=== PATIENT | female | born 1995 | race Caucasian/White ===

== ENCOUNTER → 2017-03-22 | Outpatient (CLI) | payer OTHER | END | disposition home or self-care (01) | LOC: LABWHC1 09:50 | PROVIDERS: ATTEND Obstetrics & Gynecology | DX: N91.2 Amenorrhea, unspecified (principal) | CPT/HCPCS: 36415; 84702 ==

== ENCOUNTER 2018-08-09 15:09 | Outpatient (CLI) | payer OTHER ==
[2018-08-09 16:10] VITALS: BP 114/73; PULSE 96; RESP 16; TEMP 97.7
--- NOTE | 2018-08-10 07:14 | P.MSEPDOC ---
Presenting Problems - Arrival Data Date of Arrival on Unit: 08/09/18 Time of Arrival on Unit: 15:09 Mode of Transport: Ambulatory - Complaint OB-Reason for Admission/Chief Complaint: Vaginal Bleeding Comment: pink tinge mucus on tp Medical History - Information : 1 Para: 0 Term: 0 : 0 Abortions: Spontaneous or Elective: 0 Number of Living Children: 0 - Gestational Age Gestational Age by NICOLE (wks/days): 37 Weeks and 6 Days - History Complications: Smoker Review of Systems - Review of Systems Constitutional: No problems Breast: No problems ENT: No problems Cardiovascular: No problems Respiratory: No problems Gastrointestinal: No problems Genitourinary: No problems Musculoskeletal: No problems Neurological: No problems Skin: No problems Vital Signs - Temperature Temperature: 97.7 F Temperature Source: Temporal Artery Scan - Pulse Right Brachial Pulse Rate: 96 Pulse Assessment Method: Automatic Cuff - Respirations Respiratory Rate: 16 Oxygen Delivery Method: Room Air - Blood Pressure Right Arm Blood Pressure: 114/73 Blood Pressure Mean: 86 Blood Pressure Source: Automatic Cuff Medical Screen Scoring (Pre) - Cervical Exam Dilation: 0 cm = 0 - Uterine Contractions Frequency: > 5 minutes apart = 1 - Maternal Vital Signs Maternal Temperature: N/A Signs of Preeclampsia: N/A - Assessment Baseline FHR: 120 Heart Rate - NICHD Category: Category I (Normal) = 0 NST: Reactive Position: N/A Station: N/A - Total Score Total Score (Pre): 1 - Level of Risk Level of Risk: Low (0-5) Physician Notification (Pre) - Physician Notified Physician Notified Date: 08/09/18 Physician Notified Time: 15:48 Spoke With: Elkin Pop Order Received: Yes - Notification Comment Comment: Cervical Exam: Dilatation: Closed (text) /Effacement: 70 % /Station: High (text). Vaginal Discharge: None Noted Disposition - Disposition OB Disposition: Discharge to home, Written follow up instructions reviewed Discharge Date: 08/09/18 Discharge Time: 15:50 I agree with the RN Medical Screening Exam: Yes Risk & Benefit of care provided described in d/c instruction: Yes Diagnosis: FALSE LABOR AT OR AFTER 37 COMPLETED WEEKS OF GESTATION
== END 2018-08-09 15:50 | disposition home or self-care (01) ==
LOC: FBPOP 15:09
PROVIDERS: ATTEND Obstetrics & Gynecology
DX: O47.1 False labor at or after 37 completed weeks of gestation (principal); O99.333 Smoking (tobacco) complicating pregnancy, third trimester; Z3A.37 37 weeks gestation of pregnancy
CPT/HCPCS: 59025; 99213

== ENCOUNTER 2018-08-18 05:43 | Inpatient (IN) | payer OTHER ==
[2018-08-18] MEDS: LACTATED RINGERS 1,000 ML IV SCH ×4 (06:00→23:11)
[2018-08-18] MEDS ORDERED: TERBUTALINE 1 MG/ML VIAL SQ PRN (06:03)
[2018-08-18] MEDS ORDERED: OXYTOCIN 10 UNIT/ML 1 ML VIAL IM PRN (06:03)
[2018-08-18] MEDS ORDERED: CARBOPROST TROMETHAMINE 250 MCG/ML 1 ML AMP IM PRN (06:03)
[2018-08-18] MEDS ORDERED: LIDOCAINE 1% INJ 10MG/ML (20 ML MDV) SQ PRN (06:03)
[2018-08-18] MEDS ORDERED: METHYLERGONOVINE 0.2 MG/ML 1 ML AMP IM PRN (06:03)
[2018-08-18 06:14] VITALS: BMI 46.2
[2018-08-18] MEDS: OXYTOCIN 20 UNITS/1000 ML NS 1,000 ML IV SCH (06:25)
[2018-08-18 07:12] LABS: Basophils # (A) 0.1 k/uL (0-0.2); Basophils % (A) 0 %; Eosinophils # (A) 0.2 k/uL (0-0.7); Eosinophils % (A) 2 %; HCT 37.7 % (34.0-46.0); Lymphocytes # (A) 2.2 k/uL (1.0-4.8); Lymphocytes % (A) 16 %; MCH 29.8 pg (25.0-35.0); MCHC 31.9 g/dL (31.0-37.0); MCV 93.5 fL (80.0-100.0); Mean Platelet Volume 7.8; Monocytes # (A) 0.6 k/uL (0-1.0); Monocytes % (A) 4 %; Neutrophils # (A) 10.9 k/uL (1.3-7.7); Neutrophils % (A) 76 %; Platelet Count 250 k/uL (150-450); RBC 4.04 m/uL (3.80-5.40); RDW 13.7 % (11.5-15.5); WBC 14.3 k/uL (3.8-10.6)
[2018-08-18] MEDS: BUTORPHANOL 1 MG/ML 1 ML VIAL IV PRN ×2 (12:22→14:26)
[2018-08-18] MEDS ORDERED: fentaNYL (PF) 50 MCG/ML 5 ML AMP ONE (16:23)
[2018-08-18] MEDS ORDERED: ROPIVACAINE 5MG/ML 20ML VIAL ONE (16:23)
[2018-08-18] MEDS ORDERED: SODIUM CHLORIDE 0.9% 100 ML BAG ONE (16:23)
[2018-08-19] MEDS ORDERED: AMPICILLIN 2,000 MG in SODIUM CHLORIDE 0.9% 100 ML IVPB STA (00:56)
[2018-08-19] MEDS: BUTORPHANOL 1 MG/ML 1 ML VIAL IV PRN (02:45)
[2018-08-19] MEDS: OXYTOCIN 20 UNITS/1000 ML NS 1,000 ML IV SCH (03:24)
[2018-08-19] MEDS ORDERED: AMPICILLIN 1,000 MG in SODIUM CHLORIDE 0.9% 50 ML IVPB SCH (05:00)
[2018-08-19] MEDS ORDERED: SIMETHICONE 80 MG CHEWABLE PO PRN (05:10)
[2018-08-19] MEDS ORDERED: diphenhydrAMINE 25 MG CAP PO PRN (05:10)
[2018-08-19] MEDS ORDERED: Rhogam IMMUNE GLOBULIN 1,500 UNIT/1 ML IM ONE (05:10)
[2018-08-19] MEDS ORDERED: diphenhydrAMINE 50 MG CAP PO PRN (05:10)
[2018-08-19] MEDS ORDERED: LANOLIN CREAM 5 GM TUBE TOPICAL PRN (05:10)
[2018-08-19] MEDS ORDERED: diphenhydrAMINE 50 MG/ML 1 ML VIAL IVP PRN ×2 (05:10)
[2018-08-19] MEDS ORDERED: HYDROCORTISONE 2.5% RECTAL CREAM 30 GM TUBE RECTAL PRN (05:10)
[2018-08-19] MEDS ORDERED: BENZOCAINE/MENTHOL SPRAY 1 GM/SPRAY AEROSOL TOPICAL PRN (05:10)
[2018-08-19] MEDS ORDERED: ZOLPIDEM 5 MG TAB PO PRN (05:10)
[2018-08-19] MEDS ORDERED: WITCH HAZEL 1 EACH MED..PAD TOPICAL PRN (05:10)
--- NOTE | 2018-08-19 05:14 | P.HPOB ---
History of Present Illness H&P Date: 08/18/18 Chief Complaint: Induction of Labor 22-year-old presents at 39 weeks and 1 day for induction of labor. Her cervix is 1 cm dilated, 70% effaced, and -2 station. She she is kareem irregularly. heart tones are 130-135 with moderate variability and reactive. Review of Systems All systems: negative Constitutional: Denies chills, Denies fever Eyes: denies blurred vision, denies pain Ears, nose, mouth and throat: Denies headache, Denies sore throat Cardiovascular: Denies chest pain, Denies shortness of breath Respiratory: Denies cough Gastrointestinal: Denies abdominal pain, Denies diarrhea, Denies nausea, Denies vomiting Genitourinary: Denies dysuria, Denies hematuria Musculoskeletal: Denies myalgias Integumentary: Denies pruritus, Denies rash Neurological: Denies numbness, Denies weakness Psychiatric: Denies anxiety, Denies depression Endocrine: Denies fatigue, Denies weight change Past Medical History Past Medical History: Thyroid Disorder Additional Past Medical History / Comment(s): Obstetric history: This is her first . She's had care with me since 10 weeks gestation. EDC by 9 week ultrasound. Blood type is A-, antibodies negative, rubella immune , RPR nonreactive, Pap is B-, toxoplasma was negative. Normal 1 hour glucose tolerance test. Program given at 30 weeks on 06/19/2018. Normal anatomy ultrasound. GBS negative. History of Any Multi-Drug Resistant Organisms: None Reported Past Surgical History: No Surgical Hx Reported Past Anesthesia/Blood Transfusion Reactions: No Reported Reaction Past Psychological History: Bipolar, Depression Smoking Status: Current every day smoker Past Alcohol Use History: Rare Past Drug Use History: Marijuana Additional Drug Use History / Comment(s): former use, stopped beginning of - Past Family History Mother Family Medical History: No Reported History Medications and Allergies Home Medications Medication Instructions Recorded Confirmed Type Levothyroxine Sodium [Synthroid] 150 mcg PO DAILY 01/01/16 08/18/18 History Pnv No.95/Ferrous Fum/Folic AC 1 each PO DAILY 08/18/18 08/18/18 History [ Multivitamin Tablet] Allergies Allergy/AdvReac Type Severity Reaction Status Date / Time No Known Allergies Allergy Verified 08/18/18 05:57 Exam Osteopathic Statement: *. No significant issues noted on an osteopathic structural exam other than those noted in the History and Physical/Consult. Vital Signs Temp Pulse Resp BP Pulse Ox 08/18/18 05:56 97.5 F L 99 18 132/92 98 Intake and Output 08/18/18 08/18/18 08/19/18 14:59 22:59 06:59 Intake Total 62.95 Output Total 350 Balance -350 62.95 Intake: Intake, IV Titration 62.95 Amount Oxytocin 20 Units/1000 ml 62.95 Ns 1,000 ml @ 1 MILLIUNIT/MIN 3 mls/hr IV .Q24H [facility] Rx#:[id number] Output: Urine 350 Heart: Regular rate and rhythm Lungs: Clear to auscultation bilaterally Abdomen: Soft, nontender Extremities: Negative Homans sign Results Result Diagrams: 08/18/18 06:00 Abnormal Lab Results - Last 24 Hours (Table) 08/18/18 Range/Units 06:00 WBC 14.3 H (3.8-10.6) k/uL Neutrophils # 10.9 H (1.3-7.7) k/uL Assessment and Plan (1) Normal labor Current Visit: Yes Status: Acute Code(s): O80 - ENCOUNTER FOR FULL-TERM UNCOMPLICATED DELIVERY; Z37.9 - OUTCOME OF DELIVERY, UNSPECIFIED SNOMED Code(s ): 05999072 Plan: 1. Induction of labor with amniotomy and Pitocin 2. Anticipate normal vaginal delivery
[2018-08-19] MEDS ORDERED: OXYTOCIN 20 UNITS/1000 ML NS 1,000 ML IV SCH (05:15)
--- NOTE | 2018-08-19 05:18 | P.PROBDLV ---
Vaginal Delivery Note - . Vaginal Delivery Note: 22-year-old presents at 39 weeks and 1 day for induction of labor. Cervix was 1 cm dilated, 70% effaced, and -2 station. She is kareem irregularly. heart tones 130-135 with moderate variability and reactive. Pitocin was started. Amniotomy was performed at 7:44 AM clear fluid noted. When she was very uncomfortable she did get an epidural for pain management. She made very slow progress through the day and night. At 12 hours of rupture ampicillin was started. Her cervix was completely dilated at 3:59 AM. She pushed until the baby's head was making a large at the perineum, she could not push past this area so a small episiotomy was made. She then pushed and and delivered a viable male over midline episiotomy under epidural anesthesia at 4:46 AM. Head delivered OA, nuchal cord 1 easily reduced, anterior shoulder delivered gentle downward guidance followed by posterior shoulder and rest of body. Nose and mouth bulb suctioned, cord clamped and cut , placed mother's abdomen. Apgars 8, 9, weight 7 lbs. 15 oz. Placenta delivered spontaneous, intact with three-vessel cord at 4:49 AM. Vagina, cervix , perineum inspected. Second-degree midline episiotomy was repaired with 2-0 and 3-0 Vicryl. Estimated blood loss 200 mL. Mother and baby in stable condition.
[2018-08-19] MEDS: IBUPROFEN 600 MG TAB PO PRN ×2 (05:46→16:42)
[2018-08-19] MEDS: SENNOSIDES-DOCUSATE SODIUM 1 EACH TAB PO SCH ×2 (08:05→19:54)
[2018-08-19] MEDS: ACETAMINOPHEN TAB 325 MG TAB PO PRN ×2 (08:05→19:54)
[2018-08-20] MEDS: SENNOSIDES-DOCUSATE SODIUM 1 EACH TAB PO SCH (08:40)
[2018-08-20 09:03] VITALS: RESP 18
--- NOTE | 2018-08-20 09:56 | P.DS ---
Providers Date of admission: 08/18/18 05:43 Expected date of discharge: 08/20/18 Attending physician: Jolynn Granger Primary care physician: Stated None - Discharge Diagnosis(es) (1) Normal labor Current Visit: Yes Status: Resolved (2) Normal vaginal delivery Current Visit: Yes Status: Acute Hospital Course: Pt presented for induction of labor. SHe underwent normal vaginal delivery. HEr pp course was uncomplicated. She will be discharged home PPD #1 in stable condition to follow up with me in 6 weeks. Plan - Discharge Summary New Discharge Prescriptions: New Ibuprofen [Motrin] 600 mg PO Q6HR PRN #30 tab PRN Reason: Mild Pain Or Fever >= 100.5 No Action Levothyroxine Sodium [Synthroid] 150 mcg PO DAILY Pnv No.95/Ferrous Fum/Folic AC [ Multivitamin Tablet] 1 each PO DAILY Discharge Medication List Levothyroxine Sodium [Synthroid] 150 mcg PO DAILY 01/01/16 [History] Pnv No.95/Ferrous Fum/Folic AC [ Multivitamin Tablet] 1 each PO DAILY [History] Ibuprofen [Motrin] 600 mg PO Q6HR PRN #30 tab 08/20/18 [Rx] Follow up Appointment(s)/Referral(s): Jolynn Granger DO [Doctor of Osteopathic Medicine] - 6 Weeks Discharge Disposition: HOME SELF-CARE
[2018-08-20 17:45] VITALS: BP 115/60; PULSE 80; TEMP 98.3
== END 2018-08-20 19:30 | disposition home or self-care (01) | DRG 807 ==
LOC: 4FBP 05:43
PROVIDERS: ADMIT Obstetrics & Gynecology; ATTEND Obstetrics & Gynecology
PROC: 10E0XZZ Delivery of Products of Conception, External Approach (ICD-10-PCS; principal; 2018-08-19)
PROC: 3E033VJ Introduction of Other Hormone into Peripheral Vein, Percutaneous Approach (ICD-10-PCS; 2018-08-19)
PROC: 10907ZC Drainage of Amniotic Fluid, Therapeutic from Products of Conception, Via Natural or Artificial Opening (ICD-10-PCS; 2018-08-19)
PROC: 00HU33Z Insertion of Infusion Device into Spinal Canal, Percutaneous Approach (ICD-10-PCS; 2018-08-19)
PROC: 3E0R3BZ Introduction of Anesthetic Agent into Spinal Canal, Percutaneous Approach (ICD-10-PCS; 2018-08-19)
PROC: 0W8NXZZ Division of Female Perineum, External Approach (ICD-10-PCS; 2018-08-19)
DX: O69.81X0 Labor and delivery complicated by cord around neck, without compression, not applicable or unspecified (principal); Z37.0 Single live birth; O99.344 Other mental disorders complicating childbirth; F32.9 Major depressive disorder, single episode, unspecified; O99.334 Smoking (tobacco) complicating childbirth; F17.210 Nicotine dependence, cigarettes, uncomplicated; M51.26 Other intervertebral disc displacement, lumbar region; O99.89 Other specified diseases and conditions complicating pregnancy, childbirth and the puerperium; O99.284 Endocrine, nutritional and metabolic diseases complicating childbirth; E03.9 Hypothyroidism, unspecified; O99.214 Obesity complicating childbirth; E66.9 Obesity, unspecified; O26.893 Other specified pregnancy related conditions, third trimester; Z3A.39 39 weeks gestation of pregnancy; Z67.91 Unspecified blood type, Rh negative; Z79.899 Other long term (current) drug therapy
CPT/HCPCS: 85025; 86850; 86900; 86901

== ENCOUNTER 2020-09-29 15:21 | Outpatient (CLI) | payer OTHER ==
[2020-09-29 16:45] VITALS: BP 128/70; PULSE 85; RESP 16; TEMP 97.4
--- NOTE | 2020-10-02 07:38 | P.MSEPDOC ---
Presenting Problems - Arrival Data Date of Arrival on Unit: 09/29/20 Time of Arrival on Unit: 15:21 Mode of Transport: Ambulatory - Complaint OB-Reason for Admission/Chief Complaint: Vaginal Bleeding Medical History - Information : 2 Para: 1 Term: 1 : 0 Abortions: Spontaneous or Elective: 0 Number of Living Children: 1 - Gestational Age Gestational Age by INCOLE (wks/days): 36 Weeks and 2 Days - History Complications: Other Comment: Baby has a dilated L kidney, pt is being seen by MFM Review of Systems - Review of Systems Constitutional: No problems Breast: No problems ENT: No problems Cardiovascular: No problems Respiratory: No problems Gastrointestinal: No problems Genitourinary: No problems Musculoskeletal: No problems Neurological: No problems Skin: No problems Vital Signs - Temperature Temperature: 97.4 F Temperature Source: Temporal Artery Scan - Pulse Right Pulse Rate: 85 Pulse Assessment Method: Automatic Cuff - Respirations Respiratory Rate: 16 Oxygen Delivery Method: Room Air O2 Sat by Pulse Oximetry: 96 - Blood Pressure Right Arm Blood Pressure: 128/70 Blood Pressure Mean: 89 Blood Pressure Source: Automatic Cuff Medical Screen Scoring (Pre) - Cervical Exam Dilation: 0 cm = 0 Membranes: Intact - Uterine Contractions Frequency: > 5 minutes apart = 1 Duration: > 40 seconds = 2 Intensity: Contraction palpated strong = 1 - Maternal Vital Signs Maternal Temperature: N/A Maternal Blood Pressure: N/A Signs of Preeclampsia: N/A Maternal Respirations: N/A - Maternal Trauma Maternal Trauma: N/A - Assessment - Baby A Baseline FHR: 125 Heart Rate - NICHD Category: Category I (Normal) = 0 NST: Reactive Position: N/A Station: N/A - Total Score - Baby A Total Score - Baby A: 4 - Total Score - Baby B Total Score - Baby B: 4 - Total Score - Baby C Total Score - Baby C: 4 - Level of Risk - Baby A Level of Risk - Baby A: Low (0-5) - Level of Risk - Baby B Level of Risk - Baby B: Low (0-5) - Level of Risk - Baby C Level of Risk - Baby C: Low (0-5) Physician Notification (Pre) - Physician Notified Physician Notified Date: 09/29/20 Physician Notified Time: 15:59 New Order Received: Yes - Notification Comment Comment: Check patient's cervix, if no/minimal bleeding noted on glove and patient is not dilated, she may DC home. Disposition - Disposition OB Disposition: Triage Discharge Date: 09/29/20 Discharge Time: 16:40 I agree with the RN Medical Screening Exam: Yes Risk & Benefit of care provided described in d/c instruction: Yes Diagnosis: SPOTTING COMPLICATING , THIRD TRIMESTER
== END 2020-09-29 16:40 | disposition home or self-care (01) ==
LOC: FBPOP 15:21
PROVIDERS: ATTEND Obstetrics & Gynecology
DX: O26.853 Spotting complicating pregnancy, third trimester (principal); Z3A.36 36 weeks gestation of pregnancy
CPT/HCPCS: 59025; 99213

== ENCOUNTER 2020-10-21 06:00 | Inpatient (IN) | payer OTHER ==
[2020-10-21] MEDS ORDERED: CITRIC ACID-SODIUM CITRATE 15 ML CUP PO ONE (06:13)
[2020-10-21 06:53] LABS: Basophils # (A) 0.2 k/uL (0-0.2); Basophils % (A) 1 %; Eosinophils # (A) 0.3 k/uL (0-0.7); Eosinophils % (A) 2 %; HGB 11.5 gm/dL (11.4-16.0); Lymphocytes # (A) 2.1 k/uL (1.0-4.8); Lymphocytes % (A) 14 %; MCH 29.1 pg (25.0-35.0); MCHC 32.9 g/dL (31.0-37.0); MCV 88.5 fL (80.0-100.0); Mean Platelet Volume 8.3; Monocytes # (A) 0.7 k/uL (0-1.0); Monocytes % (A) 4 %; Neutrophils # (A) 11.3 k/uL (1.3-7.7); Neutrophils % (A) 76 %; Platelet Count 305 k/uL (150-450); RBC 3.95 m/uL (3.80-5.40); RDW 13.1 % (11.5-15.5); WBC 14.9 k/uL (3.8-10.6)
[2020-10-21] MEDS ORDERED: LACTATED RINGERS 1,000 ML IV ONE (06:59)
[2020-10-21] MEDS ORDERED: ceFAZolin 3 GM in SODIUM CHLORIDE 0.9% 100 ML IVPB ONE (07:00)
[2020-10-21] MEDS ORDERED: LACTATED RINGERS 1,000 ML IV SCH (07:00)
[2020-10-21] MEDS ORDERED: NALBUPHINE 10 MG/ML (1 ML AMP) ONE (07:54)
[2020-10-21] MEDS ORDERED: PHENYLEPHRINE 10 MG/ML VIAL ONE (07:54)
[2020-10-21] MEDS ORDERED: OXYTOCIN 10 UNIT/ML 1 ML VIAL ONE (07:54)
[2020-10-21] MEDS ORDERED: MORPHINE SULFATE (PF) 0.3 MG/0.3 ML SYR ONE (07:54)
[2020-10-21] MEDS ORDERED: diphenhydrAMINE 25 MG CAP PO PRN (08:49)
[2020-10-21] MEDS ORDERED: ACETAMINOPHEN TAB 325 MG TAB PO PRN (08:49)
[2020-10-21] MEDS ORDERED: LANOLIN CREAM 5 GM TUBE TOPICAL PRN (08:49)
[2020-10-21] MEDS ORDERED: NALOXONE 0.4 MG/ML 1 ML VIAL IV PRN ×2 (08:49→08:57)
[2020-10-21] MEDS ORDERED: ZOLPIDEM 5 MG TAB PO PRN (08:49)
[2020-10-21] MEDS ORDERED: ONDANSETRON 4 MG/2 ML VIAL IVP PRN (08:49)
[2020-10-21] MEDS ORDERED: METOCLOPRAMIDE 5 MG/ML 2 ML VIAL IVP PRN (08:49)
[2020-10-21] MEDS ORDERED: diphenhydrAMINE 50 MG/ML 1 ML VIAL IVP PRN ×2 (08:49)
[2020-10-21] MEDS ORDERED: SIMETHICONE 80 MG CHEWABLE PO PRN (08:49)
[2020-10-21] MEDS ORDERED: HYDROmorphone 0.5 MG/0.5 ML SYRINGE IVP PRN (08:57)
[2020-10-21] MEDS ORDERED: OXYTOCIN 20 UNITS/1000 ML NS 1,000 ML IV SCH (09:00)
[2020-10-21] MEDS: KETOROLAC 15 MG/ML 1 ML VIAL IVP SCH ×2 (12:32→21:29)
--- NOTE | 2020-10-21 12:46 | P.HPOB ---
History of Present Illness H&P Date: 10/21/20 Chief Complaint: macrosomia, with dilated left renal kidney 24-year-old presents at 39 weeks and 3 days for a primary low transverse . She had an ultrasound the other day for the baby was measuring greater than 90th percentile about 9-1/2 pounds. Is advised with [facility] that we should offer her a section which she agreed to along with a tubal l igation. Review of Systems All systems: negative Constitutional: Denies chills, Denies fever Eyes: denies blurred vision, denies pain Ears, nose, mouth and throat: Denies headache, Denies sore throat Cardiovascular: Denies chest pain, Denies shortness of breath Respiratory: Denies cough Gastrointestinal: Denies abdominal pain, Denies diarrhea, Denies nausea, Denies vomiting Genitourinary: Denies dysuria, Denies hematuria Musculoskeletal: Denies myalgias Integumentary: Denies pruritus, Denies rash Neurological: Denies numbness, Denies weakness Psychiatric: Denies anxiety, Denies depression Endocrine: Denies fatigue, Denies weight change Past Medical History Past Medical History: Thyroid Disorder Additional Past Medical History / Comment(s): Obstetric history: This is her second . She's had care with me in follow-up with [facility] for a dilated left renal pelvis. Blood type is A-, antibodies negative, rubella immune, RPR nonreactive, Pap is B-, toxoplasma was negative. Normal 1 hour glucose tolerance test. History of Any Multi-Drug Resistant Organisms: None Reported Past Surgical History: No Surgical Hx Reported Past Anesthesia/Blood Transfusion Reactions: No Reported Reaction Past Psychological History: Bipolar, Depression Smoking Status: Former smoker Past Alcohol Use History: None Reported, Rare Past Drug Use History: None Reported, Marijuana Additional Drug Use History / Comment(s): former use, stopped beginning of - Past Family History Mother Family Medical History: No Reported History Medications and Allergies Home Medications Medication Instructions Recorded Confirmed Type Pnv No.95/Ferrous Fum/Folic AC 1 each PO DAILY 08/18/18 10/21/20 History [ Multivitamin Tablet] Escitalopram [Lexapro] 20 mg PO DAILY 09/29/20 10/21/20 History Levothyroxine Sodium [Levoxyl] 225 mcg PO DAILY 09/29/20 10/21/20 History Omeprazole Magnesium [PriLOSEC OTC] 1 tab PO DAILY 09/29/20 10/21/20 History Allergies Allergy/AdvReac Type Severity Reaction Status Date / Time No Known Allergies Allergy Verified 09/29/20 15:50 Exam Osteopathic Statement: *. No significant issues noted on an osteopathic structural exam other than those noted in the History and Physical/Consult. Vital Signs Temp Pulse Resp BP Pulse Ox 10/21/20 12:00 97.9 F 84 16 116/72 97 10/21/20 10:45 97.2 F L 73 16 100/58 96 10/21/20 10:15 77 17 106/56 96 10/21/20 09:43 96.7 F L 73 17 118/68 97 10/21/20 09:24 96.9 F L 72 17 116/82 96 10/21/20 09:09 96.9 F L 71 17 104/58 97 10/21/20 08:54 71 16 110/56 96 10/21/20 08:46 96.9 F L 79 16 110/56 96 10/21/20 06:10 96.7 F L 87 16 132/73 98 Intake and Output 10/20/20 10/21/20 10/21/20 22:59 06:59 14:59 Other: Weight 138.346 kg Heart: Regular rate and rhythm Lungs: Clear to auscultation bilaterally Abdomen: Soft, nontender Extremities: Negative Homans sign Results Result Diagrams: 10/21/20 06:10 Abnormal Lab Results - Last 24 Hours (Table) 10/21/20 Range/Units 06:10 WBC 14.9 H (3.8-10.6) k/uL Neutrophils # 11.3 H (1.3-7.7) k/uL Assessment and Plan (1) Macrosomia Current Visit: Yes Status: Acute Code(s): P08.0 - EXCEPTIONALLY LARGE BABY SNOMED Code(s): 70980855 (2) Dilation of renal pelvis of fetus Current Visit: Yes Status: Acute Code(s): RDX5934 - SNOMED Code(s): 640664968 (3) Family planning Current Visit: Yes Status: Acute Code(s): Z30.09 - ENCOUNTER FOR OTH GENERAL CNSL AND ADVICE ON CONTRACEPTION SNOMED Code(s): 699552582 Plan: 1. primary low transverse with tubal ligation
--- NOTE | 2020-10-21 12:51 | P.OP ---
Date of Procedure: 10/21/20 Preoperative Diagnosis: 1. at 39 weeks 3 days 2. macrosomia 3. dilated left renal pelvis 4. family planning Postoperative Diagnosis: 1. at 39 weeks 3 days 2. macrosomia 3. dilated left renal pelvis 4. family planning Procedure(s) Performed: Primary low transverse with tubal ligation Anesthesia: spinal Surgeon: Jolynn Granger Cost Reduction Engineer #1: Evelyn Grullon Estimated Blood Loss (ml): 500 IV fluids (ml): 500 Urine output (ml): 200 Pathology: other (Bilateral fallopian tube segments) Condition: stable Disposition: floor Operative Findings: Viable male, Apgars ending, weight 9 lbs. 1 oz. Description of Procedure: Patient was taken to the operating room where spinal anesthesia was found be adequate. She was prepped and draped in normal sterile fashion in dorsal supine position with a leftward tilt. Pfannenstiel skin incision was made the scalpel and carried through to the underlying layer of fascia with the scalpel. Fascia was incised in midline and carried bilaterally with the Jaimes scissors. The superior aspect of the fascial incision was grasped with [place] clamps elevated and the underlying rectus muscles dissected off with the Jaimes's. Attention was then turned to inferior aspect of same incision which in a similar fashion was grasped tented up and the underlying rectus muscles dissected off with the Jaimes's. The rectus muscles were the midline and the peritoneum was identified tented up and entered sharply with the scalpel. The incision was extended superiorly and inferiorly with good visualization of the bladder. The bladder blade was inserted and the vesicouterine peritoneum was incised the [place]zen[place]ums then carried bilaterally and bladder flap created digitally. A low transverse incision was then made on the uterus with the scalpel. This was carried bilaterally and digital manner. Infant's head delivered atraumatically, nose and mouth bulb suctioned, cord clamped and cut, handed off to waiting nurses. Apgars 8,8, weight 9 lbs. 1 oz. Placenta delivered manually, intact with three-vessel cord. The uterus is exteriorized and cleared of all clots and debris. The uterine incision was closed with 0 Vicryl in a running locked fashion. Second layer of the same sutures used in imbricating fashion to obtain excellent hemostasis. Both ovaries and tubes appeared normal. The uterus was placed back into the abdomen. The peritoneum was reapproximated using 2-0 Vicryl in a running fashion. The muscles were reapproximated using 2- 0 Vicryl in interrupted fashion. The fascia was reapproximated using 0 Vicryl in a running fashion. The subcutaneous tissues closed with 3-0 Vicryl running fashion. The skin was closed kaylah. Patient tolerated the procedure well, sponge and instrument counts were correct times 2 and she was taken to the recovery room in stable condition.
[2020-10-21] MEDS: LACTATED RINGERS 1,000 ML IV SCH ×2 (16:02→18:02)
[2020-10-21] MEDS: SENNOSIDES-DOCUSATE SODIUM 1 EACH TAB PO SCH (21:36)
[2020-10-21] MEDS: diphenhydrAMINE 50 MG/ML 1 ML VIAL IVP PRN (23:00)
[2020-10-22] MEDS: LACTATED RINGERS 1,000 ML IV SCH ×2 (01:45→11:59)
[2020-10-22] MEDS: KETOROLAC 15 MG/ML 1 ML VIAL IVP SCH ×3 (01:46→15:58)
[2020-10-22] MEDS: diphenhydrAMINE 50 MG/ML 1 ML VIAL IVP PRN (05:04)
[2020-10-22 06:55] LABS: Basophils % (A) 0 %; Eosinophils # (A) 0.2 k/uL (0-0.7); Eosinophils % (A) 2 %; HCT 29.5 % (34.0-46.0); Lymphocytes # (A) 1.4 k/uL (1.0-4.8); Lymphocytes % (A) 12 %; MCH 30.3 pg (25.0-35.0); MCHC 33.7 g/dL (31.0-37.0); MCV 89.9 fL (80.0-100.0); Monocytes # (A) 0.5 k/uL (0-1.0); Monocytes % (A) 4 %; Neutrophils # (A) 9.4 k/uL (1.3-7.7); Neutrophils % (A) 79 %; Platelet Count 257 k/uL (150-450); RBC 3.28 m/uL (3.80-5.40); RDW 13.3 % (11.5-15.5); WBC 11.8 k/uL (3.8-10.6)
[2020-10-22 07:17] LABS: HGB 9.9 gm/dL (11.4-16.0)
--- NOTE | 2020-10-22 07:31 | P.PN ---
Progress Note - Text Date: 10/22/2020 Time: 06:49 The patient is status post section Vital signs stable VAS: 0-10 Patient has no complaints of pain. The patient incurred some minimal itching yesterday, this itching is now subsiding. Pain meds to be managed by service.
[2020-10-22] MEDS: SENNOSIDES-DOCUSATE SODIUM 1 EACH TAB PO SCH ×2 (07:35→21:13)
--- NOTE | 2020-10-22 08:11 | P.PNOBGPC ---
Subjective - Subjective Principal diagnosis: Status post primary low transverse with tubal ligation. POD #1 Interval history: Recent seen and examined. Denies nausea, vomiting, chest pain, shortness of breath or any calf pain. Her pain is controlled with Toradol and [place]. Patient reports: Reports appetite normal, Reports voiding normally, Reports pain well controlled, Reports ambulating normally Objective - Vital Signs Latest vital signs: Vital Signs Temp Pulse Resp BP Pulse Ox 10/22/20 04:47 98 10/22/20 04:00 98.3 F 86 16 105/65 97 10/22/20 01:48 16 10/22/20 01:00 98 10/21/20 23:53 77 16 10/21/20 23:52 98.8 F 77 16 95/46 96 10/21/20 22:00 16 10/21/20 21:00 99 10/21/20 20:00 98.2 F 75 16 121/78 99 10/21/20 16:00 98.0 F 69 17 116/73 98 10/21/20 15:00 17 10/21/20 12:30 16 10/21/20 12:00 97.9 F 84 16 116/72 97 10/21/20 10:45 97.2 F L 73 16 100/58 96 10/21/20 10:15 77 17 106/56 96 10/21/20 09:43 96.7 F L 73 17 118/68 97 10/21/20 09:24 96.9 F L 72 17 116/82 96 10/21/20 09:09 96.9 F L 71 17 104/58 97 10/21/20 08:54 71 16 110/56 96 10/21/20 08:46 96.9 F L 79 16 110/56 96 Intake and Output 10/21/20 10/22/20 10/22/20 22:59 06:59 14:59 Output Total 325 600 Balance -325 -600 Output: Urine 325 600 Uretheral ([place]) 200 Other: # Voids 1 1 - Exam Lungs: bilateral: normal Chest: Normal S1, Normal S2 Extremities: Present: normal Abdomen: Present: normal appearance, soft. Absent: distention, tenderness Incision: Present: normal, dry, intact Uterus: Present: normal, firm - Labs Labs: Abnormal Lab Results - Last 24 Hours (Table) 10/22/20 Range/Units 06:39 WBC 11.8 H (3.8-10.6) k/uL RBC 3.28 L (3.80-5.40) m/uL Hgb 9.9 L D (11.4-16.0) gm/dL Hct 29.5 L (34.0-46.0) % Neutrophils # 9.4 H (1.3-7.7) k/uL Assessment and Plan (1) Macrosomia Current Visit: Yes Status: Resolved Code(s): P08.0 - EXCEPTIONALLY LARGE BABY SNOMED Code(s): 03878605 (2) Dilation of renal pelvis of fetus Current Visit: Yes Status: Resolved Code(s): ZAB3816 - SNOMED Code(s): 457442837 (3) Family planning Current Visit: Yes Status: Resolved Code(s): Z30.09 - ENCOUNTER FOR OTH GENERAL CNSL AND ADVICE ON CONTRACEPTION SNOMED Code(s): 216362280 (4) Status post primary low transverse section Current Visit: Yes Status: Acute Code(s): Z98.891 - HISTORY OF UTERINE SCAR FROM PREVIOUS SURGERY SNOMED Code(s): 509407080 (5) Status post tubal ligation at time of delivery, current hosp Current Visit: Yes Status: Acute Code(s): O80 - ENCOUNTER FOR FULL-TERM UNCOMPLICATED DELIVERY; Z30.2 - ENCOUNTER FOR STERILIZATION SNOMED Code(s): 694485074 Plan: 1. Increase ambulation 2. Continue pain control 3. Regular diet
[2020-10-22] MEDS: HYDROcodone/APAP 7.5-325MG 1 EACH TAB PO PRN ×2 (11:57→18:10)
[2020-10-22] MEDS: IBUPROFEN 600 MG TAB PO PRN ×2 (14:54→21:13)
[2020-10-22] MEDS: diphenhydrAMINE 50 MG CAP PO PRN (18:16)
[2020-10-23] MEDS: HYDROcodone/APAP 7.5-325MG 1 EACH TAB PO PRN ×3 (00:04→12:43)
[2020-10-23] MEDS: diphenhydrAMINE 50 MG CAP PO PRN (00:07)
[2020-10-23 00:09] VITALS: PULSE 89
[2020-10-23] MEDS: IBUPROFEN 600 MG TAB PO PRN ×2 (03:03→09:33)
--- NOTE | 2020-10-23 07:45 | P.PNOBGPC ---
Subjective - Subjective Principal diagnosis: S/P 1*LTCS with TL POD #2 Interval history: Patient seen and examined. feeling well. Denies N/V, F/C, CP, SOB, calf pain. Jax reg diet and passing flatus. pain well controlled. Patient reports: Reports appetite normal, Reports voiding normally, Reports pain well controlled, Reports ambulating normally Objective - Vital Signs Latest vital signs: Vital Signs Temp Pulse Resp BP Pulse Ox 10/23/20 00:00 98.5 F 89 16 113/72 10/22/20 15:02 97.6 F 97 17 138/77 10/22/20 08:00 97.7 F 83 16 128/76 99 Intake and Output 10/22/20 10/23/20 10/23/20 22:59 06:59 14:59 Other: # Voids 2 1 - Exam Lungs: bilateral: normal Chest: Normal S1, Normal S2 Extremities: Present: normal Abdomen: Present: normal appearance, soft. Absent: distention, tenderness Incision: Present: normal, dry, intact Uterus: Present: normal, firm Assessment and Plan (1) Macrosomia Current Visit: Yes Status: Resolved Code(s): P08.0 - EXCEPTIONALLY LARGE BABY SNOMED Code(s): 71225507 (2) Dilation of renal pelvis of fetus Current Visit: Yes Status: Resolved Code(s): ZRL7706 - SNOMED Code(s): 277204607 (3) Family planning Current Visit: Yes Status: Resolved Code(s): Z30.09 - ENCOUNTER FOR OT GENERAL CNSL AND ADVICE ON CONTRACEPTION SNOMED Code(s): 904719261 (4) Status post primary low transverse section Current Visit: Yes Status: Acute Code(s): Z98.891 - HISTORY OF UTERINE SCAR FROM PREVIOUS SURGERY SNOMED Code(s): 473470309 (5) Status post tubal ligation at time of delivery, current hosp Current Visit: Yes Status: Acute Code(s): O80 - ENCOUNTER FOR FULL-TERM UNCOMPLICATED DELIVERY; Z30.2 - ENCOUNTER FOR STERILIZATION SNOMED Code(s): 743836694 Plan: 1. cont po care 2. possible discharge home later today
[2020-10-23 08:05] VITALS: BP 125/85; RESP 18; TEMP 97.8
[2020-10-23] MEDS: SENNOSIDES-DOCUSATE SODIUM 1 EACH TAB PO SCH (09:33)
--- NOTE | 2020-10-23 12:26 | P.DS ---
Providers Date of admission: 10/21/20 06:00 Expected date of discharge: 10/23/20 Attending physician: Jolynn Granger Primary care physician: Stated None - Discharge Diagnosis(es) (1) Macrosomia Current Visit: Yes Status: Resolved (2) Dilation of renal pelvis of fetus Current Visit: Yes Status: Resolved (3) Family planning Current Visit: Yes Status: Resolved (4) Status post primary low transverse section Current Visit: Yes Status: Acute (5) Status post tubal ligation at time of delivery, current hosp Current Visit: Yes Status: Acute Hospital Course: Patient presented for 1*LTCS with TL. She underwent this procedure without complication. The baby did have some oxygenation issues and is still in the nursery with supplemental oxygen. Pt is ambulating and voiding, abdiel reg diet and having normal bowel movements. She will be discharged home POD #2 in stable condition to follow up with me in one week. Plan - Discharge Summary New Discharge Prescriptions: New Ibuprofen [Motrin] 600 mg PO Q6HR PRN #30 tab PRN Reason: Mild Pain Or Fever >= 100.5 HYDROcodone/APAP 7.5-325MG [[place] 7.5-325] 1 each PO Q6H PRN #12 tab PRN Reason: Severe Pain No Action Pnv No.95/Ferrous Fum/Folic AC [ Multivitamin Tablet] 1 each PO DAILY Escitalopram [Lexapro] 20 mg PO DAILY Levothyroxine Sodium [Levoxyl] 225 mcg PO DAILY Omeprazole Magnesium [PriLOSEC OTC] 1 tab PO DAILY Discharge Medication List Pnv No.95/Ferrous Fum/Folic AC [ Multivitamin Tablet] 1 each PO DAILY 08/18/18 [History] Escitalopram [Lexapro] 20 mg PO DAILY 09/29/20 [History] Levothyroxine Sodium [Levoxyl] 225 mcg PO DAILY 09/29/20 [History] Omeprazole Magnesium [PriLOSEC OTC] 1 tab PO DAILY 09/29/20 [History] HYDROcodone/APAP 7.5-325MG [[place] 7.5-325] 1 each PO Q6H PRN #12 tab 10/23/20 [Rx] Ibuprofen [Motrin] 600 mg PO Q6HR PRN #30 tab 10/23/20 [Rx] Follow up Appointment(s)/Referral(s): Jolynn Granger DO [Doctor of Osteopathic Medicine] - 1 Week Discharge Disposition: HOME SELF-CARE
== END 2020-10-23 13:32 | disposition home or self-care (01) | DRG 785 ==
LOC: 4FBP 06:00
PROVIDERS: ADMIT Obstetrics & Gynecology; ATTEND Obstetrics & Gynecology
PROC: 10D00Z1 Extraction of Products of Conception, Low, Open Approach (ICD-10-PCS; principal; 2020-10-21 08:14)
PROC: 0UB70ZZ Excision of Bilateral Fallopian Tubes, Open Approach (ICD-10-PCS; principal; 2020-10-21 08:14)
DX: O36.63X0 Maternal care for excessive fetal growth, third trimester, not applicable or unspecified (principal); O99.344 Other mental disorders complicating childbirth; F32.9 Major depressive disorder, single episode, unspecified; Z30.2 Encounter for sterilization; Z37.0 Single live birth; Z3A.39 39 weeks gestation of pregnancy; Z79.890 Hormone replacement therapy; Z79.899 Other long term (current) drug therapy; Z87.891 Personal history of nicotine dependence; O36.8930 Maternal care for other specified fetal problems, third trimester, not applicable or unspecified
CPT/HCPCS: 85025; 86850; 86900; 86901; 88302

== ENCOUNTER → 2021-06-10 | Outpatient (CLI) | payer BC | END | disposition home or self-care (01) | LOC: LABWHC1 15:00 | PROVIDERS: ATTEND Internal Medicine | DX: Z20.822 Contact with and (suspected) exposure to COVID-19 (principal) | CPT/HCPCS: U0003; C9803; U0005 ==

== ENCOUNTER → 2023-03-08 | Outpatient (CLI) | payer OTHER ==
[2023-03-09 01:07] LABS: HIV 2 AB Non-Reactive (Non-Reactive); HIV AB P24 Non-Reactive (Non-Reactive); HIV P24 AG Non-Reactive (Non-Reactive)
[2023-03-09 05:43] LABS: Herpes simplex I and/or II IgM 0.29 INDEX (<=0.90); Herpes simplex IgG I Ab 2.4 (< or = 0.90); Herpes simplex IgG II Ab 0.42 (< or = 0.90)
[2023-03-10 07:29] LABS: C. trachomatis,PCR Negative (Neg,Equiv); Chlamydia trachomatis Source Urine
[2023-03-10 09:03] LABS: N. gonorrhoeae,PCR Negative (Neg,Equiv); Neisseria Source Urine
== END | disposition home or self-care (01) ==
LOC: LABWHC1 11:21
PROVIDERS: ATTEND Nurse Practitioner Family
DX: Z11.3 Encounter for screening for infections with a predominantly sexual mode of transmission (principal); Z20.2 Contact with and (suspected) exposure to infections with a predominantly sexual mode of transmission
CPT/HCPCS: 36415; 86694; 86695; 86696; 87390; 87491; 87591

== ENCOUNTER 2023-12-15 22:30 | Emergency (ER) | payer OTHER ==
[2023-12-15] MEDS: LIDOCAINE 4% PATCH TOPICAL ONE (23:19)
[2023-12-15] MEDS: ORPHENADRINE 30 MG/ML 2 ML VIAL IM STA (23:19)
[2023-12-15] MEDS: KETOROLAC 15 MG/ML 1 ML VIAL IM STA (23:20)
--- NOTE | 2023-12-16 00:26 | XR ---
EXAMINATION TYPE: XR lumbar spine 2 or 3V DATE OF EXAM: 12/16/2023 CLINICAL HISTORY: Strain injury with pain TECHNIQUE: Frontal and lateral images of the lumbar spine are obtained. COMPARISON: None FINDINGS: There are 5 lumbar type vertebral bodies identified. The lumbar spine shows dextroconvex scoliotic curvature centered at L2 level without evidence of acute fracture or dislocation. Vertebral body heights and disk space heights are within normal limits. The overlying soft tissue appears un remarkable. IMPRESSION: No acute fracture or dislocation is seen in the lumbar spine.
[2023-12-16] MEDS: HYDROmorphone 1 MG/ML 1 ML SYRINGE IM STA (00:47)
--- NOTE | 2023-12-16 00:53 | ED ---
Back Pain HPI - General Source: patient Limitations: no limitations <Madiha Leyva - Last Filed: 12/16/23 04:24> <Ewa Mata - Last Filed: 12/16/23 07:07> - General Chief Complaint: Back Pain/Injury Stated Complaint: Lower Back Pain Time Seen by Provider: 12/15/23 22:47 - History of Present Illness Initial Comments: 28-year-old female presenting with chief complaint of lower back pain. 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 No radiation of pain down the legs. No loss of bowel or bladder control or saddle paresthesia. Pain remains centralized. (Madiha Leyva) - Related Data Home Medications Medication Instructions Recorded Confirmed Pnv No.95/Ferrous Fum/Folic AC 1 each PO DAILY 08/18/18 10/21/20 [ Multivitamin Tablet] Escitalopram [Lexapro] 20 mg PO DAILY 09/29/20 10/21/20 Levothyroxine Sodium [Levoxyl] 225 mcg PO DAILY 09/29/20 10/21/20 Omeprazole Magnesium [PriLOSEC OTC] 1 tab PO DAILY 09/29/20 10/21/20 Previous Rx's Medication Instructions Recorded HYDROcodone/APAP 7.5-325MG [[place] 1 each PO Q6H PRN #12 tab 10/23/20 7.5-325] Ibuprofen [Motrin] 600 mg PO Q6HR PRN #30 tab 10/23/20 Allergies Allergy/AdvReac Type Severity Reaction Status Date / Time No Known Allergies Allergy Verified 09/29/20 15:50 Review of Systems ROS Other: All systems not noted in ROS Statement are negative. <Madiha Leyva - Last Filed: 12/16/23 04:24> ROS Other: All systems not noted in ROS Statement are negative. <Ewa Mata - Last Filed: 12/16/23 07:07> ROS Statement: Those systems with pertinent positive or pertinent negative responses have been documented in the HPI. Past Medical History Past Medical History: Thyroid Disorder Additional Past Medical History / Comment(s): Obstetric history: This is her second . She's had care with me in follow-up with MFM for a dilated left renal pelvis. Blood type is A-, antibodies negative, rubella immune, RPR nonreactive, Pap is B-, toxoplasma was negative. Normal 1 hour glucose tolerance test. History of Any Multi-Drug Resistant Organisms: None Reported Past Surgical History: No Surgical Hx Reported Past Anesthesia/Blood Transfusion Reactions: No Reported Reaction Past Psychological History: Bipolar, Depression Smoking Status: Former smoker Past Alcohol Use History: None Reported, Rare Past Drug Use History: None Reported, Marijuana - Past Family History Mother Family Medical History: No Reported History <Madiha Leyva - Last Filed: 12/16/23 04:24> General Exam Limitations: no limitations General appearance: alert, in distress (Patient is in pain) Head exam: Present: atraumatic, normocephalic Eye exam: Present: normal appearance Neck exam: Present: normal inspection Respiratory exam: Absent: respiratory distress Cardiovascular Exam: Present: regular rate Back exam: Present: normal inspection, vertebral tenderness. Absent: paraspinal tenderness Neurological exam: Present: alert, oriented X3 Psychiatric exam: Present: normal affect, normal mood Skin exam: Present: warm, dry <Madiha Leyva - Last Filed: 12/16/23 04:24> Course Vital Signs 12/15/23 12/16/23 12/16/23 22:35 01:27 03:19 Temperature 98.7 F Pulse Rate 84 63 69 Respiratory 16 16 18 Rate Blood Pressure 127/79 133/87 134/91 O2 Sat by Pulse 98 96 96 Oximetry 12/16/23 05:28 Temperature 97.7 F Pulse Rate 62 Respiratory 16 Rate Blood Pressure 154/79 O2 Sat by Pulse 99 Oximetry Medical Decision Making <Madiha Leyva - Last Filed: 12/16/23 04:24> <Ewa Mata - Last Filed: 12/16/23 07:07> - Medical Decision Making Was pt. sent in by a medical professional or institution (, PA, CANVAS REPAIRER, urgent ca re, hospital, or chcf...) When possible be specific @ -No Did you speak to anyone other than the patient for history (EMS, parent, family, police, friend...)? What history was obtained from this source @ -No Did you review nursing and triage notes (agree or disagree)? Why? @ -I reviewed and agree with nursing and triage notes Were old charts reviewed (outside hosp., previous admission, EMS record, old EKG, old radiological studies, urgent care reports/EKG's, ch[facility] records)? Report findings @ -No old charts were reviewed Differential Diagnosis (chest pain, altered mental status, abdominal pain women, abdominal pain men, vaginal bleeding, weakness, fever, dyspnea, syncope, headache, dizziness, GI bleed, back pain, seizure, CVA, palpatations, mental health, musculoskeletal)? @ - [facility] Differential Back Pain: Strain, zoster, cauda equina syndrome, epidural abscess, vertebral osteomyelitis, discitis, fracture, subluxation, disc herniation, DJD, spinal stenosis, dissection, AAA, pancreatitis, peptic ulcer disease, pyelonephritis, kidney stone this is not meant to be an all-inclusive list. EKG interpreted by me (3pts min.). @ -As above X-rays interpreted by me (1pt min.). @ -xray shows no fracture or dislocation U/S interpreted by me (1pt. min.). @ -None done What testing was considered but not performed or refused? (CT, X-rays, U/S, labs)? Why? @ -None What meds were considered but not given or refused? Why? @ -None Did you discuss the management of the patient with other professionals (professionals i.e. , PA, CANVAS REPAIRER, lab, RT, psych nurse, social sciences professor, boiler operators supervisor, teacher, mobile patrol officer, wrapper caser)? Give summary @ -No Was smoking cessation discussed for >3mins.? @ -No Was critical care preformed (if so, how long)? @ -No Were there social determinants of health that impacted care today? How? (Homelessness, low income, unemployed, alcoholism, drug addiction, transportation, low edu. Level, literacy, decrease access to med. care, mcfp, r ehab)? @ -No Was there de-escalation of care discussed even if they declined (Discuss DNR or withdrawal of care, Hospice)? DNR status @ -No What co-morbidities impacted this encounter? (DM, HTN, Smoking, COPD, CAD, Cancer, CVA, ARF, Chemo, Hep., AIDS, mental health diagnosis, sleep apnea, morbid obesity)? @ -None Was patient admitted / discharged? Hospital course, mention meds given and route, prescriptions, significant lab abnormalities, going to OR and other pertinent info. 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 No red flag symptoms. She is given pain medication. Will be discharged pending CT. Signed out to my attending Dr. Mata for final disposition, discharge paperwork is prepared and will be changed if needed (Madiha Leyva) CT interpreted by me (1pt min.). @ -No obvious fractures or malalignment U/S interpreted by me (1pt. min.). @ -None done What testing was considered but not performed or refused? (CT, X-rays, U/S, labs)? Why? @ -Patient was advised she cannot have an MRI outpatient if she has persistent symptoms What meds were considered but not given or refused? Why? @ -None Did you discuss the management of the patient with other professionals (professionals i.e. , PA, CANVAS REPAIRER, lab, RT, psych nurse, social sciences professor, boiler operators supervisor, teacher, mobile patrol officer, wrapper caser)? Give summary @ -No Was smoking cessation discussed for >3mins.? @ -No Was critical care preformed (if so, how long)? @ -No Were there social determinants of health that impacted care today? How? (Homelessness, low income, unemployed, alcoholism, drug addiction, transportation, low edu. Level, literacy, decrease access to med. care, mcfp, rehab)? @ -No Was there de-escalation of care discussed even if they declined (Discuss DNR or withdrawal of care, Hospice)? DNR status @ -No What co-morbidities impacted this encounter? (DM, HTN, Smoking, COPD, CAD, Cancer, CVA, ARF, Chemo, Hep., AIDS, mental health diagnosis, sleep apnea, morbid obesity)? @ -None Was patient admitted / discharged? Hospital course, mention meds given and route, prescriptions, significant lab abnormalities, going to OR and other pertinent info. @ -Discharged Patient care was signed out to me by Emilee ROBLES. Patient was pending imaging CT scan resulted with evidence of herniated disc at L4-L5, no evidence for spinal cord compression. Patient was reevaluated she is comfortable plan for returning to work with restrictions of no lifting greater than 15 pounds. Patient was provided with contact information for spine surgeon. Patient discharged home in stable condition. Undiagnosed new problem with uncertain prognosis? @ -No Drug Therapy requiring intensive monitoring for toxicity (Heparin, Nitro, I nsulin, Cardizem)? @ -No Were any procedures done? @ -No Diagnosis/symptom? @ -Low back pain Acute, or Chronic, or Acute on Chronic? @ -Acute Uncomplicated (without systemic symptoms) or Complicated (systemic symptoms)? @ -Default Side effects of treatment? @ -No Exacerbation, Progression, or Severe Exacerbation? @ -No Poses a threat to life or bodily function? How? (Chest pain, [place], [place], pneumonia, PE, COPD, DKA, ARF, appy, cholecystitis, CVA, Diverticulitis, Homicidal, Suicidal, threat to staff... and all critical care pts) @ -No (Ewa Mata) Disposition Is patient prescribed a controlled substance at d/c from ED?: No <Madiha Leyva - Last Filed: 12/16/23 04:24> <Ewa Mata - Last Filed: 12/16/23 07:07> Clinical Impression: Strain of lumbar region Disposition: HOME SELF-CARE Condition: Good Instructions (If sedation given, give patient instructions): Acute Low Back Pain (ED) Additional Instructions: Follow up with PCP. Report back to ER with any new or worsening symptoms. Referrals: Marika Torres MD [Primary Care Provider] - 1-2 days Phill Ulloa DO [Doctor of Osteopathic Medicine] - 1-2 days
--- NOTE | 2023-12-16 04:43 | CT ---
EXAMINATION TYPE: CT lumbar spine wo con DATE OF EXAM: 12/16/2023 1:26 AM COMPARISON: Lumbar spine x-ray earlier today HISTORY: Pt. 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 very hard for pt to ambulate. CT DLP: 1832.2 mGycm Automated exposure control for dose reduction was used. Unenhanced CT of the lumbar spine was performed. Bone and soft tissue window settings are submitted as well as coronal and sagittal reconstructions. There are 5 lumbar type vertebra. Lumbar spine shows satisfactory alignment without evidence of acute fracture or dislocation. Vertebral body heights and disc space heights are maintained. Posterior disc herniation L4-L5 level is seen on sagittal image 33 and axial image 68 effacing the an terior thecal sac. No additional significant disc herniations are seen. Patent bilateral neural gregor estrellita. Paraspinal muscle bulk is preserved. Visualized liver is heterogeneously hypodense consistent wi th fatty infiltrative hepatocellular disease. IMPRESSION: No acute findings are evident.
[2023-12-16] MEDS: HYDROcodone/APAP 5-325MG 1 EACH TAB PO STA (05:23)
[2023-12-16 05:44] VITALS: BP 154/79; PULSE 62; RESP 16; TEMP 97.7
== END 2023-12-16 05:30 | disposition home or self-care (01) ==
LOC: EC 22:30
DX: S39.012A Strain of muscle, fascia and tendon of lower back, initial encounter (principal); E07.9 Disorder of thyroid, unspecified; F31.9 Bipolar disorder, unspecified; Z79.890 Hormone replacement therapy; Z87.891 Personal history of nicotine dependence; Z79.899 Other long term (current) drug therapy; X58.XXXA Exposure to other specified factors, initial encounter; Y92.129 Unspecified place in nursing home as the place of occurrence of the external cause
CPT/HCPCS: 99284; 96372 ×3; 72100; 72131; J2360; J1170; J1885

== ENCOUNTER → 2023-12-27 | Outpatient (CLI) | payer OTHER ==
--- NOTE | 2023-12-28 11:31 | MR ---
EXAMINATION TYPE: MR lumbar spine wo con DATE OF EXAM: 12/27/2023 11:35 AM CLINICAL INDICATION:Female, 28 years old with history of S39.012A STRAIN OF MUSCLE; PHH, Lower back p ain, BLE radiculopathy, injury. COMPARISON: CT 12/16/2023. TECHNIQUE: Multi planar, multi sequence imaging was performed utilizing: T1-weighted, T2-weighted, a nd turbo inversion recovery imaging of the lumbar spine. IV Contrast: (None if empty) FINDINGS: Alignment: The lumbar vertebral bodies have preserved heights and alignment. Cord: The conus medullaris and the distal spinal cord appear unremarkable with regards to their signa l intensity and morphology. Bones/Discs: Mild degeneration changes throughout the spine with osteophyte formation and facet joint arthropathy. Inversion recovery signal the adjoining spinous processes of L3-L4. Intervertebral disc signal is maintained. T12-L1: No evidence of significant spinal canal stenosis or neural foraminal stenosis. L1-L2: No evidence of significant spinal canal stenosis or neural foraminal stenosis. L2-L3: No evidence of significant spinal canal stenosis or neural foraminal stenosis. L3-L4: No evidence of significant spinal canal stenosis or neural foraminal stenosis. L4-L5: Central disc protrusion without significant spinal canal stenosis. Facet joint arthropathy wit h mild bilateral neural foraminal stenosis. L5-S1: The disc is rounded posterior morphology without significant spinal canal stenosis. Facet join t arthropathy with mild bilateral neural foraminal stenosis. No significant spinal canal or neural foraminal stenosis in the remainder of the visualized levels. IMPRESSION: 1. L4-L5 central disc protrusion with out significant spinal canal stenosis. 2. Multilevel degeneration changes and mild no significant neural foraminal stenosis. 3. Mild bony edema in the spinous processes of L3-L4 correlate for injury/strain at this level given bony remodeling on CT 12/16/2023.
== END | disposition home or self-care (01) ==
LOC: RADMRIMAIN 10:18
PROVIDERS: ATTEND Emergency Medicine
DX: S39.012A Strain of muscle, fascia and tendon of lower back, initial encounter (principal); R60.0 Localized edema; M51.16 Intervertebral disc disorders with radiculopathy, lumbar region
CPT/HCPCS: 72148

== ENCOUNTER 2024-05-25 04:29 | Emergency (ER) | payer OTHER ==
[2024-05-25] MEDS: ONDANSETRON 4 MG ODT STARTER PACK 2 TAB BTL PO STA (06:07)
[2024-05-25] MEDS: ONDANSETRON ODT 4 MG TAB PO STA (06:07)
--- NOTE | 2024-05-25 06:13 | ED ---
Overdose HPI - General Chief Complaint: Overdose Stated Complaint: Chemical Exposure Time Seen by Provider: 05/25/24 05:00 Source: patient Mode of arrival: ambulatory Limitations: no limitations - History of Present Illness Initial Comments: 28-year-old female presents emergency department reporting shortness of breath. States that earlier this evening she sprayed flea walker in her home. This was at 5 PM. She states that she got the pesticide on her hands and possibly ingested some of it. Since then she has had some nausea with vomiting. She reports diaphoresis. She felt as if her lips were blue. She called poison control and they reported that she needed to come to the ER to be checked. She denies any chest pain or difficulty breathing. No fevers. No concern for . No other alleviating, precipitating or modifying factors - Related Data Home Medications Medication Instructions Recorded Confirmed Pnv No.95/Ferrous Fum/Folic AC 1 each PO DAILY 08/18/18 10/21/20 [ Multivitamin Tablet] Escitalopram [Lexapro] 20 mg PO DAILY 09/29/20 10/21/20 Levothyroxine Sodium [Levoxyl] 225 mcg PO DAILY 09/29/20 10/21/20 Omeprazole Magnesium [PriLOSEC OTC] 1 tab PO DAILY 09/29/20 10/21/20 Previous Rx's Medication Instructions Recorded HYDROcodone/APAP 7.5-325MG [[place] 1 each PO Q6H PRN #12 tab 10/23/20 7.5-325] Ibuprofen [Motrin] 600 mg PO Q6HR PRN #30 tab 10/23/20 Ondansetron Odt [Zofran Odt] 4 mg PO Q8HR PRN #20 tab 05/25/24 Allergies Allergy/AdvReac Type Severity Reaction Status Date / Time No Known Allergies Allergy Verified 05/25/24 04:34 Review of Systems ROS Statement: Those systems with pertinent positive or pertinent negative responses have been documented in the HPI. ROS Other: All systems not noted in ROS Statement are negative. Past Medical History Past Medical History: Thyroid Disorder Additional Past Medical History / Comment(s): Obstetric history: This is her second . She's had care with me in follow-up with M for a dilated left renal pelvis. Blood type is A-, antibodies negative, rubella imm une, RPR nonreactive, Pap is B-, toxoplasma was negative. Normal 1 hour glucose tolerance test. History of Any Multi-Drug Resistant Organisms: None Reported Past Surgical History: Section Past Anesthesia/Blood Transfusion Reactions: No Reported Reaction Past Psychological History: Bipolar, Depression Smoking Status: Vaper Past Alcohol Use History: None Reported, Rare Past Drug Use History: Marijuana - Past Family History Mother Family Medical History: No Reported History General Exam Limitations: no limitations General appearance: alert, in no apparent distress Head exam: Present: atraumatic, normocephalic, normal inspection Eye exam: Present: normal appearance, PERRL, EOMI. Absent: scleral icterus, conjunctival injection, periorbital swelling ENT exam: Present: normal exam, mucous membranes moist Neck exam: Present: normal inspection. Absent: tenderness, meningismus, lymphadenopathy Respiratory exam: Present: normal lung sounds bilaterally. Absent: respiratory distress, wheezes, rales, rhonchi, stridor Cardiovascular Exam: Present: regular rate, normal rhythm, normal heart sounds. Absent: systolic murmur, diastolic murmur, rubs, gallop, clicks GI/Abdominal exam: Present: soft, normal bowel sounds. Absent: distended, tenderness, guarding, rebound, rigid Extremities exam: Present: normal inspection, full ROM, normal capillary refill. Absent: tenderness, pedal edema, joint swelling, calf tenderness Back exam: Present: normal inspection Neurological exam: Present: alert, oriented X3, CN II-XII intact Psychiatric exam: Present: normal affect, normal mood Skin exam: Present: warm, dry, intact, normal color. Absent: rash Course Vital Signs 05/25/24 05/25/24 04:34 06:22 Temperature 97.8 F 98.2 F Pulse Rate 64 73 Respiratory 20 18 Rate Blood Pressure 136/86 145/99 O2 Sat by Pulse 100 100 Oximetry Medical Decision Making - Medical Decision Making Was pt. sent in by a medical professional or institution (, PA, VISUAL DISPLAY MANAGER, urgent care, hospital, or group home...) When possible be specific @ -Patient was sent in by poison control Did you speak to anyone other than the patient for history (EMS, parent, family, police, friend...)? What history was obtained from this source @ -No Did you review nursing and triage notes (agree or disagree)? Why? @ -I reviewed and agree with nursing and triage notes Were old charts reviewed (outside hosp., previous admission, EMS record, old EKG, old radiological studies, urgent care reports/EKG's, group home records)? Report findings @ -No old charts were reviewed Differential Diagnosis (chest pain, altered mental status, abdominal pain women, abdominal pain men, vaginal bleeding, weakness, fever, dyspnea, syncope, headache, dizziness, GI bleed, back pain, seizure, CVA, palpatations, mental health, musculoskeletal)? @ -Differential Hypoglycemia, shock, sepsis, hyponatremia, anemia, infection, [place], ETOH, adverse medicine reaction, overdose, stroke, this is not meant to be an all-inclusive list. EKG interpreted by me (3pts min.). @ -Not done X-rays interpreted by me (1pt min.). @ -None done CT interpreted by me (1pt min.). @ -None done U/S interpreted by me (1pt. min.). @ -None done What testing was considered but not performed or refused? (CT, X-rays, U/S, labs)? Why? @ -Laboratory studies and chest x-raypatient refused What meds were considered but not given or refused? Why? @ -None Did you discuss the management of the patient with other professionals (professionals i.e. , PA, VISUAL DISPLAY MANAGER, lab, RT, psych nurse, social media marketing specialist, occupational health specialist, teacher, bank secrecy act officer, case mgr)? Give summary @ -Spoke with poison control who states that the patient does not need any workup. Active ingredient is permethrin Was smoking cessation discussed for >3mins.? @ -No Was critical care preformed (if so, how long)? @ -No Were there social determinants of health that impacted care today? How? (Homelessness, low income, unemployed, alcoholism, drug addiction, transportation, low edu. Level, literacy, decrease access to med. care, assisted, rehab)? @ -No Was there de-escalation of care discussed even if they declined (Discuss DNR or withdrawal of care, Hospice)? DNR status @ -No What co-morbidities impacted this encounter? (DM, HTN, Smoking, COPD, CAD, Cancer, CVA, ARF, Chemo, Hep., AIDS, mental health diagnosis, sleep apnea, morbid obesity)? @ -None Was patient admitted / discharged? Hospital course, mention meds given and route, prescriptions, significant lab abnormalities, going to OR and other pertinent info. @ -[Upon arrival patient seen and evaluated in room 31. Thorough history and physical exam was performed. We did call poison control. They state that the p atient does not need any further workup. I did offer IV with laboratory studies and nausea medications. Patient is refusing. States she only came in because Poison control told her she needed to. She feels improved at this time and is ready to go home. I did give her a dose of oral Zofran. She is instructed to follow-up with her primary care doctor and return for any new or worsening symptoms Undiagnosed new problem with uncertain prognosis? @ -No Drug Therapy requiring intensive monitoring for toxicity (Heparin, Nitro, Insulin, Cardizem)? @ -No Were any procedures done? @ -No Diagnosis/symptom? @ -Acute nausea and vomiting, pesticide exposure Acute, or Chronic, or Acute on Chronic? @ -Acute Uncomplicated (without systemic symptoms) or Complicated (systemic symptoms)? @ -Complicated Side effects of treatment? @ -No Exacerbation, Progression, or Severe Exacerbation? @ -No Poses a threat to life or bodily function? How? (Chest pain, [place], [place], pneumonia, PE, COPD, DKA, ARF, appy, cholecystitis, CVA, Diverticulitis, Homicidal, Suicidal, threat to staff... and all critical care pts) @ -No Disposition Clinical Impression: Pesticide exposure, Nausea Disposition: HOME SELF-CARE Condition: Stable Additional Instructions: Take the nausea medications as needed. Follow-up with your doctor and return for any new or worsening symptoms Prescriptions: Ondansetron Odt [Zofran Odt] 4 mg PO Q8HR PRN #20 tab PRN Reason: Nausea Is patient prescribed a controlled substance at d/c from ED?: No Referrals: Marika Torres MD [Primary Care Provider] - 1-2 days Time of Disposition: 06:13
[2024-05-25 06:24] VITALS: BP 145/99; PULSE 73; RESP 18; TEMP 98.2
== END 2024-05-25 06:22 | disposition home or self-care (01) ==
LOC: EC 04:29
DX: Z77.098 Contact with and (suspected) exposure to other hazardous, chiefly nonmedicinal, chemicals (principal); R11.2 Nausea with vomiting, unspecified; F17.290 Nicotine dependence, other tobacco product, uncomplicated
CPT/HCPCS: 99283; S0119

== ENCOUNTER → 2024-05-31 | Outpatient (CLI) | payer OTHER ==
[2024-05-31 09:40] VITALS: BP 138/92; PULSE 83; RESP 16; TEMP 97.6
--- NOTE | 2024-05-31 14:12 | P.PAINPG ---
PQRS Measure Charge Sheet Comment: HISTORY OF PRESENT ILLNESS: A 28 yr old female w son at side as a referral from Dr Velásquez presents today w severe and chronic LBP since Dec 2023 secondary to work related injury, radiculopathy, DDD, spondylosis and facet arthropathy without myelopathy for evaluation. Pt states pain level is provoked at 7 /10 in intensity, constant, localized in the lumbar spine, predominantly axial, achy in character w occasional shooting pain towards the LEs. Pain is provoked by weight bearing activity. Pain is alleviated by PT x 6 wks which ended in Feb 2024, physician guided home exercises every other day since Feb 2024, injections fr Dr Gonzalez (R TFESI L4-L5/ L5-S1 in Feb 2024) without relief, medications (Neurontin, Ibu), repositioning and rest . Oswestry axial pain score at 25. PMH: OA, Hypothyroidism, Asthma, MDD/ Bipolar Disorder, Seasonal Allergies PSH: C section (2019), Tubal Ligation (2019) SH: Vaper, Rare ETOH use, Cannabis use. Has 2 children. ER visit for overdose 05/25/24. FH: Mo- No Reported History All: See list Meds: See list REVIEW OF ORGAN SYSTEMS: CONSTITUTIONAL: No fevers or chills. No recent weight loss. NEUROLOGICAL: + numbness and tingling along the distal extremities. No seizure disorders or headaches. MUSCULOSKELETAL: + pain PSYCHIATRIC: Denies current depression or suicidal thoughts. Physical Examinations : Constitutional : Cooperative , not in acute distress . Neurologic : Cranial nerve II to XII intact. No focal neurological deficits. Psychiatric : alert & oriented x 3. Matching mood & appropriate affect. Judgment & insight intact. Musculoskeletal : Cervical Spine Motor strength in the deltoid and biceps: Normal right side. Normal Left side Motor strength biceps and the wrist extensors: Normal right side . Normal left side Motor strength in the triceps muscle: Normal right side. Normal left side Deep tendon reflexes: Normal at the biceps. Normal at Brachioradialis. Normal at triceps Vertebral body tenderness to deep palpation over Cervical facet loading test: positive bilaterally Spurling test: positive bilaterally Neck distraction test: positive bilaterally Brianne sign: positive bilaterally Lumbar spine Motor strength lower extremities ,thigh and legs 5/5 Right side , 5/5 Left side Deep tendon reflexes : Normal Knee Jerk. Normal Ankle Jerk Vertebral body tenderness over Holden Test positive Lumbar facet Loading Test: positive Right / positive Left L4-L5, L5-S1 Range of motion of the lumbar spine Flexion 30 degrees, extension 10 degrees Straight Leg Raise test: Left/ Right positive at degrees Edward test: positive right / positive left. Severe tenderness over the Sacroiliac joint on the Right / Left sides Gaenslen test: positive bilaterally Seated flexion test: positive bilaterally. Sacral spine : Severe tenderness over the Sacroiliac joint: right side / left side Range of motion: Flexion of the lumbar spine <60 degrees Range of motion: Extension of the lumbar spine <20 degrees Gaenslen's Test positive Edward test: positive right side / left side Thigh Thrust Test Sacral Thrust Test Imaging: MRI non contrast lumbar spine from 12/27/23 reviewed Assessment/ Plan : Lumbar radiculopathy Recommendation of RONEY NINA L4-L5, L5-S1 #1. May need a series of injections, up until RFA, for optimal pain relief. Risks, benefits of procedure discussed and patient verbalized understanding. Admits to anti- coagulant use or medical history of diabetes. Protocol for discontinuation/ continuation of medications jose procedure discussed. Minimal anesthesia provided, if clinically indicated, consisting of Versed and Fentanyl. All questions answered. I have spent greater than 30 minutes on patient care today. Dr Church was available by phone for the evaluation of this patient. The time was used to review the medical records including relevant urine studies and Prescription history (MAPs), review of the available imaging, evaluation and examination of the patient, coordination of care with the medical staff and if applicable referring physicians, as well as creation of the medical record PQRS Narrative: Smoking Status Current every day smoker Home Medications: Ambulatory Orders Pnv No.95/Ferrous Fum/Folic AC [ Multivitamin Tablet] 1 each PO DAILY 08/18/18 Escitalopram [Lexapro] 20 mg PO DAILY 09/29/20 Levothyroxine Sodium [Levoxyl] 225 mcg PO DAILY 09/29/20 Omeprazole Magnesium [PriLOSEC OTC] 1 tab PO DAILY 09/29/20 HYDROcodone/APAP 7.5-325MG [[place] 7.5-325] 1 each PO Q6H PRN #12 tab 10/23/20 Ibuprofen [Motrin] 600 mg PO Q6HR PRN #30 tab 10/23/20 Ondansetron Odt [Zofran Odt] 4 mg PO Q8HR PRN #20 tab 05/25/24 Controlled Substance Measures - Controlled Substance Measures Is patient prescribed a controlled substance at discharge?: No
== END ==
LOC: PNWHC3 09:13
PROVIDERS: ATTEND Specialist
DX: S39.012A Strain of muscle, fascia and tendon of lower back, initial encounter (principal); M62.830 Muscle spasm of back; M54.17 Radiculopathy, lumbosacral region; F17.200 Nicotine dependence, unspecified, uncomplicated; X58.XXXA Exposure to other specified factors, initial encounter
CPT/HCPCS: 99211

== ENCOUNTER 2024-06-26 06:04 | Day surgery (SDC) | payer OTHER ==
[2024-06-26] MEDS ORDERED: LACTATED RINGERS 1,000 ML BAG ONE (07:47)
[2024-06-26] MEDS ORDERED: MIDAZOLAM 2 MG/2 ML VIAL ONE (08:01)
[2024-06-26] MEDS ORDERED: ROPIVACAINE 5MG/ML 20ML VIAL ONE (08:01)
[2024-06-26] MEDS ORDERED: fentaNYL (PF) 50 MCG/ML 2 ML AMP ONE (08:01)
--- NOTE | 2024-07-12 16:41 | FL ---
EXAMINATION TYPE: FL guided pain mgmt statistic DATE OF EXAM: 07/12/2024 FLUOROSCOPY DEMETRIUS LUM FB INJ FL TIME 43 SECS DAP 31.06 mGycm2. 2 images are submitted.
== END 2024-06-26 09:00 ==
LOC: ORPAIN 06:04
PROVIDERS: ATTEND Specialist
DX: M47.816 Spondylosis without myelopathy or radiculopathy, lumbar region (principal); Z79.1 Long term (current) use of non-steroidal anti-inflammatories (NSAID)
CPT/HCPCS: 81025

== ENCOUNTER 2024-08-09 12:31 | Day surgery (SDC) | payer OTHER ==
[2024-08-09 13:19] VITALS: TEMP 97.6
[2024-08-09] MEDS: LACTATED RINGERS 1,000 ML IV SCH (13:25)
[2024-08-09 13:26] LABS: Glucose,Whole Blood 104 mg/dL (70-110)
[2024-08-09] MEDS: IV FLUID CONTINUATION 1,000 ML IV ONE ×2 (13:26→14:14)
[2024-08-09] MEDS ORDERED: MIDAZOLAM 2 MG/2 ML VIAL ONE (13:51)
[2024-08-09] MEDS ORDERED: fentaNYL (PF) 50 MCG/ML 2 ML AMP ONE (13:51)
[2024-08-09] MEDS ORDERED: ROPIVACAINE 5MG/ML 20ML VIAL ONE (13:51)
--- NOTE | 2024-08-09 14:09 | P.PCN ---
Date of Procedure: 08/09/24 Procedure(s) Performed: PREOPERATIVE DIAGNOSIS : 1- Lumbar spondylosis with Facet Arthropathy with out myelopathy . 2- Lumber degenerative disc disease POSTOPERATIVE DIAGNOSIS: 1- Lumbar spondylosis with Facet Arthropathy without myelopathy . 2- Lumber degenerative disc disease PROCEDURE: Diagnostic bilateral L3 , L4 , and L5 medial branch block under fluoroscopy guidance(fluoroscopy images available in the radiology Department ) ( To target the facet joint between Bilateral L4-5 , and L5-S1 )#2nd ANESTHESIA: moderate sedation with intravenous Versed 2 mg and Fentanyl 100 mcg. (Sedation started at 13:51,ended at 14:06 ) EBL: Minimal COMPLICATION: None PROCEDURE INDICATION: Chronic low back pain secondary to Facet arthropathy unresponsive to conservative treatment. PROCEDURE DESCRIPTION: the patient was seen and identified in the preop holding area , risks and benefits and possible complications of the procedure and alternative were discussed with the patient, and the patient agreed to proceed with the procedure and signed the consent and vital signs monitored during the procedure and fluoroscopy was used to maximize the benefit and accuracy of the needle placement, and sedation was given to decrease patient anxiety, patient was taken to the procedure room and placed in prone position vital signs monitored in the back prepped with chlorhexidine X3 then under strict sterile technique using a right oblique fluoroscopy ,the junction of the transverse process and the superior articulating process of the right L3 , L4 , and L5 vertebra which corresponding to the fluoroscopy image of the eye of the David dog on the block side for the medial branches and subsequently , after local infiltration of skin and subcu tissuies with Ropivacaine 0.5 % , one mL at each level ,then 22-gauge 5 inches long Quincke-type needles , 3 needle was used , each one of them placed at the junction of the base of the transverse process and the superior articular process at the appropriate level, and the needle was advanced until the periosteum contacted, needle placement confirmed with AP oblique and lateral view and after appropriate needle placement confirmed, and after negative aspiration for heme and CSF and there was no paresthesia 1-1/2 mL of Ropivacaine 0.5% , then half mL injected at each level after negative aspiration the needle subsequently removed and the same procedure repeated for the left side at left side at L3 , L4 and L5 levels. At the end of the procedure and the needles removed and a bandage applied after the skin was cleaned the cleaning solution patient taken to recovery room in stable condition and monitors in the recovery room for 20-30 minutes and discharged home in stable condition after discharge criteria met and patient will follow up with the pain clinic in 2-4 weeks
[2024-08-09 14:17] VITALS: RESP 16
[2024-08-09 14:35] VITALS: BP 112/71; PULSE 62
--- NOTE | 2024-08-14 18:22 | FL ---
EXAMINATION TYPE: FL guided pain mgmt statistic DATE OF EXAM: 08/09/2024 2:13 PM COMPARISON: Pre Operative Images if available both CT/MRI or plain film CLINICAL INDICATION: Female, 28 years old with history of FB BILAT LUMBAR,PAIN; TECHNIQUE: FL guided pain mgmt statistic, multiple fluoroscopic images provided for procedure. Total fluoroscopy time: 35.9 seconds Total submitted images to PACS: 4 DAP: [id number] mGym2 . FINDINGS: Fluoroscopic images during injection for pain management demonstrate multilevel degeneration changes throughout the spine. No evidence for fracture. No acute process identified. IMPRESSION: 1. No evidence for intraoperative complication. 2. Please see the operative/procedural note for further details. [facility], , 08/14/2024 6:19 PM
== END 2024-08-09 14:48 | disposition home or self-care (01) ==
LOC: ORPAIN 12:31
PROVIDERS: ATTEND Specialist
DX: M47.816 Spondylosis without myelopathy or radiculopathy, lumbar region
CPT/HCPCS: 81025; 99152

== ENCOUNTER → 2024-08-20 | Outpatient (CLI) | payer OTHER ==
[2024-08-20 11:22] VITALS: BP 138/91; PULSE 82; RESP 20; TEMP 99.1
--- NOTE | 2024-08-20 15:06 | P.PAINPG ---
PQRS Measure Charge Sheet Comment: HISTORY OF PRESENT ILLNESS: A 28 yr old female w son at side presents today w severe and chronic LBP since Dec 2023 secondary to work related injury, radiculopathy, spondylosis and facet arthropathy without myelopathy for evaluation s/p BL MBB L4-L5/ L5-S1 #2. Pt states she experienced 45 % pain relief x 4 hrs s/p procedure. Pt states pain level is provoked at 7 /10 in intensity, constant, localized in the lumbar spine, predominantly axial, achy in character w occasional shooting pain towards the LEs. Pain is provoked by weight bearing activity. Pain is alleviated by PT x 6 wks which ended in Feb 2024, physician guided home exercises every other day since Feb 2024, injections fr Dr Gonzalez (R TFESI L4-L5/ L5-S1 in Feb 2024) without relief, medications, repositioning and rest . Interventional procedures include R TFESI L4-L5/ L5-S1 (Feb 2024), BL MBB L4-L5/ L5-S1 x2 Medications include Neurontin, Ibu, Cannabis, Hx of overdose (May 2024) REVIEW OF ORGAN SYSTEMS: CONSTITUTIONAL: No fevers or chills. No recent weight loss. NEUROLOGICAL: + numbness and tingling along the distal extremities. No seizure disorders or headaches. MUSCULOSKELETAL: + pain PSYCHIATRIC: Denies current depression or suicidal tho ughts. Physical Examinations : Constitutional : Cooperative , not in acute distress . Neurologic : Cranial nerve II to XII intact. No focal neurological deficits. Psychiatric : alert & oriented x 3. Matching mood & appropriate affect. Judgment & insight intact. Musculoskeletal : Cervical Spine Motor strength in the deltoid and biceps: Normal right side. Normal Left side Motor strength biceps and the wrist extensors: Normal right side . Normal left side Motor strength in the triceps muscle: Normal right side. Normal left side Deep tendon reflexes: Normal at the biceps. Normal at Brachioradialis. Normal at triceps Vertebral body tenderness to deep palpation over Cervical facet loading test: positive bilaterally Spurling test: positive bilaterally Neck distraction test: positive bilaterally Brianne sign: positive bilaterally Lumbar spine Motor strength lower extremities ,thigh and legs 5/5 Right side , 5/5 Left side Deep tendon reflexes : Normal Knee Jerk. Normal Ankle Jerk Vertebral body tenderness over Holden Test positive Lumbar facet Loading Test: positive Right / positive Left L4-L5, L5-S1 Range of motion of the lumbar spine Flexion 30 degrees, extension 10 degrees Straight Leg Raise test: Left/ Right positive at degrees Edward test: positive right / positive left. Severe tenderness over the Sacroiliac joint on the Right / Left sides Gaenslen test: positive bilaterally Seated flexion test: positive bilaterally. Sacral spine : Severe tenderness over the Sacroiliac joint: right side / left side Range of motion: Flexion of the lumbar spine <60 degrees Range of motion: Extension of the lumbar spine <20 degrees Gaenslen's Test positive Edward test: positive right side / left side Thigh Thrust Test Sacral Thrust Test Imaging: MRI non contrast lumbar spine from 12/27/23 reviewed Assessment/ Plan : Lumbar radiculopathy Recommendation of follow up w Dr Velásquez to explore additional treatment options. Pt stated that pain medication makes her feel nauseous and she tries not taking it at all. All questions answered. I have spent greater than 30 minutes on patient care today. Dr Church was available by phone for the evaluation of this patient. The time was used to review the medical records including relevant urine studies and Prescription history (MAPs), review of the available imaging, evaluation and examination of the patient, coordination of care with the medical staff and if applicable referring physicians, as well as creation of the medical record PQRS Narrative: Smoking Status Current every day smoker Hx Alcohol Use (MH) Yes Home Medications: Ambulatory Orders Escitalopram [Lexapro] 20 mg PO DAILY 09/29/20 Levothyroxine Sodium [Levoxyl] 125 mcg PO DAILY 09/29/20 Ibuprofen [Motrin] 600 mg PO Q6HR PRN #30 tab 10/23/20 Albuterol Inhaler [Ventolin Hfa Inhaler] 1 - 2 puff INHALATION Q6H PRN 08/08/24 Budesonide-Formot 160-4.5 Mcg [Symbicort 160-4.5 Mcg Inhaler] 2 puff INHALATION BID 08/08/24 Loratadine [Claritin] 10 mg PO DAILY 08/08/24 Montelukast [Singulair] 10 mg PO DAILY 08/08/24 metFORMIN HCL [Glucophage] 1,000 mg PO BID 08/08/24 ALPRAZolam [Xanax] 0.75 mg PO DAILY PRN 08/09/24 Controlled Substance Measures - Controlled Substance Measures Is patient prescribed a controlled substance at discharge?: No
== END | disposition home or self-care (01) ==
LOC: PNWHC3 10:39
PROVIDERS: ATTEND Specialist
DX: M47.816 Spondylosis without myelopathy or radiculopathy, lumbar region (principal)
CPT/HCPCS: 99211

== ENCOUNTER → 2024-11-12 | Outpatient (CLI) | payer OTHER ==
--- NOTE | 2024-11-14 21:50 | NM ---
EXAMINATION TYPE: NM bone scan whole body DATE OF EXAM: 11/12/2024 COMPARISON: NONE HISTORY: Low back pain Delayed whole-body scanning was performed following the injection of 23.8 mCi Tc 99m MDP. Images wer e acquired 4 hours post injection. FINDINGS: No suspicious radiotracer accumulation within the lower spine is evident. There is normal radiotracer distribution to the axial skeleton. There is some increased uptake in the region of the symphysis pubis. Correlate for pubic symphysitis. There is mild diffuse uptake in the bilateral knees likely degenerative in nature. IMPRESSION: 1. No suspicious uptake to account for low back pain. 2. Clinical consideration for pubic symphysitis is recommended [facility], , 11/14/2024 9:48 PM
== END | disposition home or self-care (01) ==
LOC: RADNMMAIN 10-24 07:10
PROVIDERS: ATTEND Orthopaedic Surgery Orthopaedic Surgery of the Spine
DX: M54.50 Low back pain, unspecified (principal)
CPT/HCPCS: 78306; A9503

== ENCOUNTER → 2025-01-07 | Outpatient (CLI) | payer OTHER ==
[2025-01-07 11:07] VITALS: BP 113/80; PULSE 91; RESP 16; TEMP 97.3
--- NOTE | 2025-01-07 11:28 | P.PAINPG ---
Objective - Vital Signs Vital signs: Intake & Output 01/06/25 01/07/25 01/07/25 18:59 06:59 18:59 Weight 120.656 kg PQRS Measure Charge Sheet Comment: HISTORY OF PRESENT ILLNESS: A 29 yr old female w son at side presents today w severe and chronic LBP since Dec 2023 secondary to work related injury, radiculopathy, spondylosis and facet arthropathy without myelopathy for evaluation. Pt states pain level is provoked at 7 /10 in intensity, constant, localized in the lumbar spine, predominantly axial, achy in character w occasional shooting pain towards the hips and LEs. Pain is provoked by lifting, bending. Pain is alleviated by PT x 12 wks which ended in Feb 2024 (which provoked pain), physician guided home exercises every other day since Feb 2024, injections fr Dr Gonzalez (R TFESI L4-L5/ L5-S1 in Feb 2024) without relief, heat, ice, medications, topical, repositioning and rest . Interventional procedures include R TFESI L4-L5/ L5-S1 (Feb 2024), BL MBB L4-L5/ L5-S1 x2 Medications include Neurontin, Ibu, BioFreeze, Cannabis REVIEW OF ORGAN SYSTEMS: CONSTITUTIONAL: No fevers or chills. No recent weight loss. NEUROLOGICAL: + numbness and tingling along the distal extremities. No seizure disorders or headaches. MUSCULOSKELETAL: + pain PSYCHIATRIC: Denies current depression or suicidal thoughts. Physical Examinations : Constitutional : Cooperative , not in acute distress . Neurologic : Cranial nerve II to XII intact. No focal neurological deficits. Psychiatric : alert & oriented x 3. Matching mood & appropriate affect. Judgment & insight intact. Musculoskeletal : Cervical Spine Motor strength in the deltoid and biceps: Normal right side. Normal Left side Motor strength biceps and the wrist extensors: Normal right side . Normal left side Motor strength in the triceps muscle: Normal right side. Normal left side Deep tendon reflexes: Normal at the biceps. Normal at Brachioradialis. Normal at triceps Vertebral body tenderness to deep palpation over Cervical facet loading test: positive bilaterally Spurling test: positive bilaterally Neck distraction test: positive bilaterally Brianne sign: positive bilaterally Lumbar spine Motor strength lower extremities ,thigh and legs 5/5 Right side , 5/5 Left side Deep tendon reflexes : Normal Knee Jerk. Normal Ankle Jerk Vertebral body tenderness over Holden Test positive Lumbar facet Loading Test: positive Right / positive Left L4-L5, L5-S1 Range of motion of the lumbar spine Flexion 30 degrees, extension 10 degrees Straight Leg Raise test: Left/ Right positive at degrees Edward test: positive right / positive left. Severe tenderness over the Sacroiliac joint on the Right / Left sides Gaenslen test: positive bilaterally Seated flexion test: positive bilaterally. Sacral spine : Severe tenderness over the Sacroiliac joint: right side / left side Range of motion: Flexion of the lumbar spine <60 degrees Range of motion: Extension of the lumbar spine <20 degrees Gaenslen's Test positive Edward test: positive right side / left side Thigh Thrust Test Sacral Thrust Test Imaging: MRI non contrast lumbar spine from 12/27/23 reviewed Assessment/ Plan : Lumbar radiculopathy Recommendation of Naproxen 500mg #60 w 2 RF. Use, side effects, adverse reactions, safe storage discussed. Discussed w Dr Velásquez and agreeable to [facility] Trial G89.4, M54.16 . All questions answered. I have spent greater than 30 minutes on patient care today. Dr Church was available by phone for the evaluation of this patient. The time was used to review the medical records including relevant urine studies and Prescription history (MAPs), review of the available imaging, evaluation and examination of the patient, coordination of care with the medical staff and if applicable referring physicians, as well as creation of the medical record - Pain Location Bilateral Lower Back Non-Pharmacological Interventions: Heat, Ice, Inactivity, Physical Therapy, Position/Reposition, Sitting Pharmacological Interventions: Block, Epidural, PRN Medication, Topical Medication PQRS Narrative: Smoking Status Current every day smoker Narcotic Agreement Date Signed 08/20/24 Hx Alcohol Use (MH) Yes Home Medications: Ambulatory Orders Escitalopram [Lexapro] 20 mg PO DAILY 09/29/20 Levothyroxine Sodium [Levoxyl] 125 mcg PO DAILY 09/29/20 Albuterol Inhaler [Ventolin Hfa Inhaler] 1 - 2 puff INHALATION Q6H PRN 08/08/24 Budesonide-Formot 160-4.5 Mcg [Symbicort 160-4.5 Mcg Inhaler] 2 puff INHALATION BID 08/08/24 Loratadine [Claritin] 10 mg PO DAILY 08/08/24 Montelukast [Singulair] 10 mg PO DAILY 08/08/24 metFORMIN HCL [Glucophage] 1,000 mg PO BID 08/08/24 ALPRAZolam [Xanax] 0.75 mg PO DAILY PRN 08/09/24 Naproxen [EC-Naproxen] 500 mg PO BID 30 Days #60 tab 01/07/25 Controlled Substance Measures - Controlled Substance Measures Is patient prescribed a controlled substance at discharge?: No
== END ==
LOC: PNWHC3 10:38
PROVIDERS: ATTEND Specialist
DX: M54.16 Radiculopathy, lumbar region (principal); F17.210 Nicotine dependence, cigarettes, uncomplicated; F12.90 Cannabis use, unspecified, uncomplicated
CPT/HCPCS: 99211

== ENCOUNTER → 2025-03-11 | Outpatient (CLI) | payer OTHER ==
[2025-03-11 18:30] LABS: Basophils % (A) 0.5 %; Eosinophils % (A) 3.2 %; HCT 39.9 % (37.2-46.3); HGB 12.6 g/dL (12.0-15.0); Lymphocytes # (A) 2.43 X 10*3/uL (0.90-5.00); Lymphocytes % (A) 21.5 %; MCH 28.1 pg (27.0-32.0); MCHC 31.6 g/dL (32.0-37.0); MCV 89.1 FL (80.0-97.0); Mean Platelet Volume 10.2 FL (9.5-12.2); Monocytes % (A) 3.8 %; NRBC Per 100 WBC 0 X 10*3/uL (0.00-0.01); Neutrophils # (A) 7.95 X 10*3/uL (1.80-7.70); Neutrophils % (A) 70.3 %; Platelet Count 358 X 10*3/uL (140-440); RBC 4.48 X 10*6/uL (4.10-5.20); RDW 14.3 % (11.5-14.5); WBC 11.31 X 10*3/uL (4.50-10.00)
[2025-03-11 18:31] LABS: Basophils # (A) 0.06 X 10*3/uL (0.00-0.10); Eosinophils # (A) 0.36 X 10*3/uL (0.04-0.35); Monocytes # (A) 0.43 X 10*3/uL (0.20-1.00)
[2025-03-11 18:45] LABS: Erythrocyte Sedimentation Rate 17 mm/Hr (0-20)
[2025-03-11 19:06] LABS: ALT 18 U/L (8-44); AST 19 U/L (13-35); Albumin 4.1 g/dL (3.8-4.9); Albumin/Globulin Ratio 1.64 Ratio (1.60-3.17); Alkaline Phosphatase 68 U/L (41-126); BUN/Creat Ratio 22.12 Ratio (12.00-20.00); Blood Urea Nitrogen 17.7 mg/dL (9.0-27.0); Calcium 9.5 mg/dL (8.7-10.3); Carbon Dioxide 23.5 mmol/L (21.6-31.8); Chloride 106 mmol/L (96-109); Chol/HDL Ratio 4.66 Ratio; Globulin 2.5 g/dL (1.6-3.3); Glucose 91 mg/dL (70-110); LDL Cholesterol,Calculated 145.7 mg/dL (0.0-131.0); Potassium 4.7 mmol/L (3.5-5.5); Rheumatoid Factor, Qnt <15 IU/mL (0-15); Sodium 140 mmol/L (135-145); Total Bilirubin 0.5 mg/dL (0.3-1.2); Total Protein 6.6 g/dL (6.2-8.2)
== END | disposition home or self-care (01) ==
LOC: LABWHC1 13:09
PROVIDERS: ATTEND Nurse Practitioner Family
DX: Z13.220 Encounter for screening for lipoid disorders (principal); Z13.228 Encounter for screening for other metabolic disorders; E03.9 Hypothyroidism, unspecified; E66.9 Obesity, unspecified; F41.9 Anxiety disorder, unspecified; J45.40 Moderate persistent asthma, uncomplicated; Z68.42 Body mass index [BMI] 45.0-49.9, adult
CPT/HCPCS: 36415; 80053; 80061; 82306; 84443; 85025; 85652; 86038; 86140; 86431

== ENCOUNTER → 2025-04-24 | Outpatient (CLI) | payer OTHER ==
[2025-04-24 13:32] VITALS: BP 114/84; PULSE 78; RESP 19; TEMP 98.9
--- NOTE | 2025-04-24 16:07 | P.PAINPG ---
PQRS Measure Charge Sheet Comment: HISTORY OF PRESENT ILLNESS: A 29 yr old female w sons at side presents today w severe and chronic LBP since Dec 2023 secondary to work related injury, radiculopathy, spondylosis and facet arthropathy without myelopathy for evaluation. Pt states pain level is provoked at 7-8 /10 in intensity, constant, localized in the lumbar spine, predominantly axial, achy in character w occasional shooting pain towards the hips and LEs. Pain is provoked by lifting, bending. Pain is alleviated by PT x 12 wks which ended in Feb 2024 (which provoked pain), physician guided home exercises every other day since Feb 2024, injections fr Dr Gonzalez (R TFESI L4-L5/ L5-S1 in Feb 2024) without relief, heat, ice, medications, topical, repositioning and rest . Interventional procedures include R TFESI L4-L5/ L5-S1 (Feb 2024), BL MBB L4-L5/ L5-S1 x2 Medications include Neurontin, Naproxen, BioFreeze, Cannabis REVIEW OF ORGAN SYSTEMS: CONSTITUTIONAL: No fevers or chills. No recent weight loss. NEUROLOGICAL: + numbness and tingling along the distal extremities. No seizure disorders or headaches. MUSCULOSKELETAL: + pain PSYCHIATRIC: Denies current depression or suicidal thoughts. Physical Examinations : Constitutional : Cooperative , not in acute distress . Neurologic : Cranial nerve II to XII intact. No focal neurological deficits. Psychiatric : alert & oriented x 3. Matching mood & appropriate affect. Judgment & insight intact. Musculoskeletal : Cervical Spine Motor strength in the deltoid and biceps: Normal right side. Normal Left side Motor strength biceps and the wrist extensors: Normal right side . Normal left side Motor strength in the triceps muscle: Normal right side. Normal left side Deep tendon reflexes: Normal at the biceps. Normal at Brachioradialis. Normal at triceps Vertebral body tenderness to deep palpation over Cervical facet loading test: positive bilaterally Spurling test: positive bilaterally Neck distraction test: positive bilaterally Brianne sign: positive bilaterally Lumbar spine Motor strength lower extremities ,thigh and legs 5/5 Right side , 5/5 Left side Deep tendon reflexes : Normal Knee Jerk. Normal Ankle Jerk Vertebral body tenderness over Holden Test positive Lumbar facet Loading Test: positive Right / positive Left L4-L5, L5-S1 Range of motion of the lumbar spine Flexion 30 degrees, extension 10 degrees Straight Leg Raise test: Left/ Right positive at degrees Edward test: positive right / positive left. Severe tenderness over the Sacroiliac joint on the Right / Left sides Gaenslen test: positive bilaterally Seated flexion test: positive bilaterally. Sacral spine : Severe tenderness over the Sacroiliac joint: right side / left side Range of motion: Flexion of the lumbar spine <60 degrees Range of motion: Extension of the lumbar spine <20 degrees Gaenslen's Test positive Edward test: positive right side / left side Thigh Thrust Test Sacral Thrust Test Imaging: MRI non contrast lumbar spine from 12/27/23 reviewed Assessment/ Plan : Lumbar radiculopathy Recommendation of Naproxen 500mg #180 NR. Use, side effects, adverse reactions, safe storage discussed. Following up w Dr Velásquez/ [facility] for possible SCS Trial G89.4, M54.16 . All questions answered. I have spent greater than 30 minutes on patient care today. Dr Church was available by phone for the evaluation of this patient. The time was used to review the medical records including relevant urine studies and Prescription history (MAPs), review of the available imaging, evaluation and examination of the patient, coordination of care with the medical staff and if applicable referring physicians, as well as creation of the medical record PQRS Narrative: Smoking Status Current every day smoker Narcotic Agreement Date Signed 08/20/24 Hx Alcohol Use (MH) No Home Medications: Ambulatory Orders Escitalopram [Lexapro] 20 mg PO DAILY 09/29/20 Levothyroxine Sodium [Levoxyl] 125 mcg PO DAILY 09/29/20 Albuterol Inhaler [Ventolin Hfa Inhaler] 1 - 2 puff INHALATION Q6H PRN 08/08/24 Budesonide-Formot 160-4.5 Mcg [Symbicort 160-4.5 Mcg Inhaler] 2 puff INHALATION BID 08/08/24 Loratadine [Claritin] 10 mg PO DAILY 08/08/24 Montelukast [Singulair] 10 mg PO DAILY 08/08/24 metFORMIN HCL [Glucophage] 1,000 mg PO BID 08/08/24 ALPRAZolam [Xanax] 0.75 mg PO DAILY PRN 08/09/24 Naproxen [Naprosyn] 500 mg PO BID 90 Days #180 tab 04/24/25 Controlled Substance Measures - Controlled Substance Measures Is patient prescribed a controlled substance at discharge?: No
== END ==
LOC: PNWHC3 12:58
PROVIDERS: ATTEND Specialist
DX: M47.26 Other spondylosis with radiculopathy, lumbar region (principal); F12.90 Cannabis use, unspecified, uncomplicated; F17.200 Nicotine dependence, unspecified, uncomplicated
CPT/HCPCS: 99211